=== PATIENT | female | born 1945 | race Caucasian/White ===

== ENCOUNTER → 2016-11-30 | Outpatient (CLI) | payer BC ==
[~2016-11-30] MED LIST: AMLO10TA80 PO; ATEN-42 PO; LATA2.5D2 BOTHEYE; OMEP20CA4 PO; PRAV40TA58 PO; VALS1TAB30 PO
== END | disposition home or self-care (01) ==
LOC: MAMMO 09:46
PROVIDERS: ATTEND Internal Medicine
DX: Z12.31 Encounter for screening mammogram for malignant neoplasm of breast (principal)
CPT/HCPCS: G0202

== ENCOUNTER → 2017-11-07 | Outpatient (CLI) | payer BC ==
[2017-11-07 07:44] LABS: BASOPHILS % 0.8 % (0.0-2.0); EOSINOPHILS % 3.1 % (0.0-5.0); HEMATOCRIT. 38.8 % (36.0-48.0); HEMOGLOBIN. 13.1 g/dL (12.0-16.0); MEAN CORPUSCULAR HEMOGLOBIN 29.9 pg (28.0-32.0); MEAN CORPUSCULAR VOLUME 88.3 fL (81.0-99.0); MEAN PLATELET VOLUME 7.7 fl (7.4-10.4); MONOCYTES % 7.2 % (2.0-8.0); NEUTROPHILS % 64.9 % (40.0-76.0); PLATELET 234 x1000/uL (130-400); RED BLOOD CELL COUNT 4.39 mill/uL (4.2-5.4); RED CELL DISTRIBUTION WIDTH 13.1 % (11.6-14.6)
[2017-11-07 08:03] LABS: CHLORIDE 103 mEq/L (98-107)
[2017-11-07 08:10] LABS: LDL CHOLESTEROL 135 mg/dL (5-100)
[2017-11-07 08:12] LABS: HDL CHOLESTEROL 43 mg/dL (40-59)
== END | disposition home or self-care (01) ==
LOC: LAB 07:20
PROVIDERS: ATTEND Internal Medicine
DX: I10 Essential (primary) hypertension (principal); E78.5 Hyperlipidemia, unspecified; M51.37 Other intervertebral disc degeneration, lumbosacral region
CPT/HCPCS: 36415; 80053; 80061; 82306; 84550; 85025